=== PATIENT | male | born 1990 | race African-American/Black ===

== ENCOUNTER 2018-11-27 16:46 | Emergency (ER) | payer MEDICAID, SELFPAY ==
[~2018-11-27] VITALS: Ht 170.2 cm; Wt 70.3 kg
[2018-11-27] VITALS (10 sets, daily range): BP systolic 113–120; BP diastolic 61–71
--- NOTE | 2018-11-27 16:41 | NUR ---
ED Nurse Note: Pt BIBA from friend's apartment due to a potential overdose. Pt denies. Pt was seen normal x 2 hours ago according to EMS. Pt denies pain. Pt's friend states that he was seeing cartoons. Pt smells like marijuana. Pt is A + O x1. Ambulatory. Pt decided to take himself off the monitor and go to room 7 and sat there. Needed security assistance to walk pt back to bed. Security at the bedside.
[~2018-11-27 16:46] MED LIST: NKM; NORCO 5-325 TA1 EACH ORAL
--- NOTE | 2018-11-27 16:49 | Emergency Room Report ---
History of Present Illness General Chief Complaint: Altered Level of Consciousness Source: Patient, EMS (Milton Nova MD) Present Illness HPI Patient is a 28-year-old male brought in by EMS after increased altered level consciousness. Patient was noted to have unknown past medical history. History is limited by poor historian. Patient was brought in from a house. Apartment. Patient states he takes trazodone. Patient was noted to have adequate blood sugar by EMS. (Milton Nova MD) Allergies: Coded Allergies: No Known Allergies (Unverified , 12/11/13) Patient History Past Medical History: see triage record Reviewed Nursing Documentation: PMH: Agreed; PSxH: Agreed (Milton Nova MD) Nursing Documentation-PMH Past Medical History: No Stated History (Milton Nova MD) Review of Systems All Other Systems: limited - Review of systems: Review systems is limited by patient's being a poor historian (Milton Nova MD) Physical Exam Vital Signs Date Time Temp Pulse Resp B/P (MAP) Pulse Ox O2 Delivery O2 Flow Rate FiO2 11/27/18 16:33 99.0 92 15 135/62 97 Room Air Sp02 EP Interpretation: reviewed, normal General Appearance: normal inspection, well appearing, no apparent distress, alert, GCS 15 Head: atraumatic ENT: normal ENT inspection, hearing grossly normal, normal voice Neck: normal inspection, full range of motion, supple, no bony tend Respiratory: normal inspection, lungs clear, normal breath sounds, no respiratory distress, no retraction, no wheezing Cardiovascular #1: regular rate, rhythm, no edema Gastrointestinal: normal inspection, normal bowel sounds, non tender, soft, no guarding, no hernia Genitourinary: no CVA tenderness Musculoskeletal: normal inspection, back normal, normal range of motion Neurologic: normal inspection, alert, responsive, speech normal Skin: normal inspection, normal color, no rash (Milton Nova MD) Medical Decision Making Restraint Attestation I, Milton Nova MD, have personally evaluated this patient. Laboratory tests have been reviewed and addressed accordingly. The patient is deemed to present a danger to themselves and/or others. This is based on the exam, history ( provided by patient, EMS/[facility] and/or family) and observed or reported behavior. Attempts for non-invasive measures have been considered and/or attempted, however, have been futile. It is in the best interest of the nursing staff, the patient, and others involved in this patient's care that behavioral restraints be applied. Patient evaluation reveals the following: Markedly agitated patient yelling and screaming. Patient had been aggressive with staff. (Milton Nova MD) Diagnostic Impression: Primary Impression: Altered level of consciousness Additional Impression: Polysubstance abuse ER Course Patient presented for altered mental status. Differential diagnosis included but was not limited to ischemic stroke, subarachnoid hemorrhage, hypoglycemia, spinal cord injury, neurodegenerative disorder, urinary tract infection, hypoxemia. Because of complexity of patient's case laboratory testing and imaging studies were ordered.Patient was noted to have somewhat bizarre behavior. Patient was given IM Haldol as well as Benadryl and Ativan due to agitation. Patient was placed in restraints.Patient was noted to have urine drug screen which was positive for multiple different substances. Patient will be observed until more appropriate.Patient states he lives on his own in an apartment. I anticipate the patient will be discharged after patient substance intoxication resolves. Labs Test 11/27/18 17:00 11/27/18 17:16 White Blood Count 8.4 K/UL (4.8-10.8) Red Blood Count 4.58 M/UL (4.70-6.10) Hemoglobin 12.1 G/DL (14.2-18.0) Hematocrit 36.9 % (42.0-52.0) Mean Corpuscular Volume 81 FL (80-99) Mean Corpuscular Hemoglobin 26.5 PG (27.0-31.0) Mean Corpuscular Hemoglobin Concent 32.8 G/DL (32.0-36.0) Red Cell Distribution Width 12.3 % (11.6-14.8) Platelet Count 205 K/UL (150-450) Mean Platelet Volume 6.5 FL (6.5-10.1) Neutrophils (%) (Auto) 71.1 % (45.0-75.0) Lymphocytes (%) (Auto) 17.8 % (20.0-45.0) Monocytes (%) (Auto) 9.3 % (1.0-10.0) Eosinophils (%) (Auto) 0.8 % (0.0-3.0) Basophils (%) (Auto) 0.9 % (0.0-2.0) Sodium Level 141 MMOL/L (136-145) Potassium Level 4.5 MMOL/L (3.5-5.1) Chloride Level 105 MMOL/L (98-107) Carbon Dioxide Level 27 MMOL/L (21-32) Anion Gap 9 mmol/L (5-15) Blood Urea Nitrogen 17 mg/dL (7-18) Creatinine 1.2 MG/DL (0.55-1.30) Estimat Glomerular Filtration Rate > 60 mL/min (>60) Glucose Level 65 MG/DL (74-106) Calcium Level 9.4 MG/DL (8.5-10.1) Urine Color Brown Urine Appearance Clear Urine pH 5 (4.5-8.0) Urine Specific [place] 1.025 (1.005-1.035) Urine Protein 2+ (NEGATIVE) Urine Glucose (UA) Negative (NEGATIVE) Urine Ketones 2+ (NEGATIVE) Urine Blood Negative (NEGATIVE) Urine Nitrite Negative (NEGATIVE) Urine Bilirubin 1+ (NEGATIVE) Urine Urobilinogen 4 MG/DL (0.0-1.0) Urine Leukocyte Esterase 1+ (NEGATIVE) Urine Opiates Screen Negative (NEGATIVE) Urine Barbiturates Screen Negative (NEGATIVE) Phencyclidine (PCP) Screen Positive (NEGATIVE) Urine Amphetamines Screen Positive (NEGATIVE) Urine Benzodiazepines Screen Negative (NEGATIVE) Urine Cocaine Screen Negative (NEGATIVE) Urine Marijuana (THC) Screen Positive (NEGATIVE) (Milton Nova MD) ER Course Patient was reassessed this morning. Patient awoke. Patient states that he's ready to be discharged. Patient denies any SI/ HI. Patient admits to abusing drugs. I advised patient to stop abusing drugs. Patient states that he wants to be discharged. Patient states that he has a place ago and that he will either walk or take the bus. He is refusing for any transport. Refusing food. States that he's been in the hospital for too long already and wants to leave. Patient did not want to stay in the hospital any longer. I advised if patient will rest a little longer to some food but he declined. Patient demanded the IV be removed and then put his clothes on and walked out of the hospital. Patient appear to be ambulatory without difficulty. He appeared clinically sober. Patient was advised to stay in the hospital for further evaluation and monitoring treatment food. Patient however refused everything. He became upset when I advised that he stay for a longer. Patient understands the risks of leaving including worsening of his condition. Patient appeared capable making decisions as he was alert and orientated 3. Patient refused to sign AMA paperwork. Refused to sign discharge paperwork. Essentially left the hospital AGAINST MEDICAL ADVICE. Labs Test 11/27/18 17:00 11/27/18 17:16 White Blood Count 8.4 K/UL (4.8-10.8) Red Blood Count 4.58 M/UL (4.70-6.10) Hemoglobin 12.1 G/DL (14.2-18.0) Hematocrit 36.9 % (42.0-52.0) Mean Corpuscular Volume 81 FL (80-99) Mean Corpuscular Hemoglobin 26.5 PG (27.0-31.0) Mean Corpuscular Hemoglobin Concent 32.8 G/DL (32.0-36.0) Red Cell Distribution Width 12.3 % (11.6-14.8) Platelet Count 205 K/UL (150-450) Mean Platelet Volume 6.5 FL (6.5-10.1) Neutrophils (%) (Auto) 71.1 % (45.0-75.0) Lymphocytes (%) (Auto) 17.8 % (20.0-45.0) Monocytes (%) (Auto) 9.3 % (1.0-10.0) Eosinophils (%) (Auto) 0.8 % (0.0-3.0) Basophils (%) (Auto) 0.9 % (0.0-2.0) Sodium Level 141 MMOL/L (136-145) Potassium Level 4.5 MMOL/L (3.5-5.1) Chloride Level 105 MMOL/L (98-107) Carbon Dioxide Level 27 MMOL/L (21-32) Anion Gap 9 mmol/L (5-15) Blood Urea Nitrogen 17 mg/dL (7-18) Creatinine 1.2 MG/DL (0.55-1.30) Estimat Glomerular Filtration Rate > 60 mL/min (>60) Glucose Level 65 MG/DL (74-106) Calcium Level 9.4 MG/DL (8.5-10.1) Total Bilirubin 1.0 MG/DL (0.2-1.0) Aspartate Amino Transf (AST/SGOT) 65 U/L (15-37) Alanine Aminotransferase (ALT/SGPT) 29 U/L (12-78) Alkaline Phosphatase 68 U/L (46-116) Total Protein 6.6 G/DL (6.4-8.2) Albumin 4.0 G/DL (3.4-5.0) Globulin 2.6 g/dL Albumin/Globulin Ratio 1.5 (1.0-2.7) Thyroid Stimulating Hormone (TSH) 0.686 uiU/mL (0.358-3.740) Salicylates Level 2.8 ug/mL (2.8-20) Acetaminophen Level < 2 MCG/ML (10-30) Serum Alcohol < 3 mg/dL Urine Color Brown Urine Appearance Clear Urine pH 5 (4.5-8.0) Urine Specific [place] 1.025 (1.005-1.035) Urine Protein 2+ (NEGATIVE) Urine Glucose (UA) Negative (NEGATIVE) Urine Ketones 2+ (NEGATIVE) Urine Blood Negative (NEGATIVE) Urine Nitrite Negative (NEGATIVE) Urine Bilirubin 1+ (NEGATIVE) Urine Ictotest Negative (NEGATIVE) Urine Urobilinogen 4 MG/DL (0.0-1.0) Urine Leukocyte Esterase 1+ (NEGATIVE) Urine RBC 0-2 /HPF (0 - 0) Urine WBC 2-4 /HPF (0 - 0) Urine Squamous Epithelial Cells None /LPF (NONE/OCC) Urine Bacteria Moderate /HPF (NONE) Urine Fine Granular Casts 2-4 /LPF (NONE) Urine Mucus Moderate /LPF (NONE/OCC) Urine Opiates Screen Negative (NEGATIVE) Urine Barbiturates Screen Negative (NEGATIVE) Phencyclidine (PCP) Screen Positive (NEGATIVE) Urine Amphetamines Screen Positive (NEGATIVE) Urine Benzodiazepines Screen Negative (NEGATIVE) Urine Cocaine Screen Negative (NEGATIVE) Urine Marijuana (THC) Screen Positive (NEGATIVE) (Guille Ramos MD) Last Vital Signs Date Time Temp Pulse Resp B/P (MAP) Pulse Ox O2 Delivery O2 Flow Rate FiO2 11/27/18 16:33 99.0 92 15 135/62 97 Room Air Status: improved (Milton Nova MD) Status: improved (Guille Ramos MD) Disposition: AGAINST MEDICAL ADVICE Condition: Stable Milton Nova MD Nov 27, 2018 16:49 Guille Ramos MD Nov 28, 2018 07:32
--- NOTE | 2018-11-27 16:50 | NUR ---
ED Nurse Note: Pt denies wanting to harm himself or others.
--- NOTE | 2018-11-27 16:52 | NUR ---
ED Nurse Note: Notified CT of order.
[2018-11-27] MEDS ORDERED: Haloperidol 5mg/ml Inj IM ONE ×2 (17:00→18:30)
--- NOTE | 2018-11-27 17:23 | NUR ---
ED Nurse Note: Pt taken to CT via [facility].
[2018-11-27 17:33] LABS: ANION GAP 9 mmol/L (5-15); BLOOD UREA NITROGEN 17 mg/dL (7-18); CALCIUM 9.4 MG/DL (8.5-10.1); CARBON DIOXIDE 27 MMOL/L (21-32); CHLORIDE 105 MMOL/L (98-107); CREATININE 1.2 MG/DL (0.55-1.30); POTASSIUM 4.5 MMOL/L (3.5-5.1); SODIUM 141 MMOL/L (136-145)
--- NOTE | 2018-11-27 17:33 | NUR ---
ED Nurse Note: Pt denied CT scan. Notified ERMD.
[2018-11-27 17:35] LABS: BASOPHILS % (AUTO) 0.9 % (0.0-2.0); EOSINOPHILS % (AUTO) 0.8 % (0.0-3.0); HEMATOCRIT 36.9 % (42.0-52.0); HEMOGLOBIN 12.1 G/DL (14.2-18.0); LYMPHOCYTES % (AUTO) 17.8 % (20.0-45.0); MEAN CORPUSCULAR VOLUME 81 FL (80-99); MONOCYTES % (AUTO) 9.3 % (1.0-10.0); NEUTROPHILS % (AUTO) 71.1 % (45.0-75.0); PLATELET COUNT 205 K/UL (150-450); RED BLOOD COUNT 4.58 M/UL (4.70-6.10); RED CELL DISTRIBUTION WIDTH 12.3 % (11.6-14.8); WHITE BLOOD COUNT 8.4 K/UL (4.8-10.8)
[2018-11-27 17:36] LABS: APPEARANCE,URINE CLEAR; BILIRUBIN, URINE 1+ (NEGATIVE); COLOR,URINE BROWN; GLUCOSE, URINE (UA) NEGATIVE (NEGATIVE); KETONES,URINE 2+ (NEGATIVE); LEUKOCYTE ESTERASE ,URINE 1+ (NEGATIVE); NITRITE,URINE NEGATIVE (NEGATIVE); PH,URINE 5 (4.5-8.0); PROTEIN,URINE 2+ (NEGATIVE); UROBILINOGEN,URINE 4 MG/DL (0.0-1.0)
[2018-11-27] MEDS ORDERED: DiphenhydrAMINE 50mg/ml Inj IM ONE (17:45)
[2018-11-27] MEDS ORDERED: LORazepam Inj 2mg/ml 1ml IM ONE (17:45)
[2018-11-27 17:46] LABS: ALANINE AMINOTRANSFERASE 29 U/L (12-78); ALBUMIN/GLOBULIN RATIO 1.5 (1.0-2.7); ALKALINE PHOSPHATASE 68 U/L (46-116); ASPARTATE AMINO TRANSFERASE 65 U/L (15-37)
--- NOTE | 2018-11-27 17:47 | NUR ---
ED Nurse Note: Pt noted to be verbally combative and trying to bite security. Notified ERMD.
--- NOTE | 2018-11-27 17:47 | NUR ---
ED Nurse Note: ERMD gave verbal order for leather restraints.
--- NOTE | 2018-11-27 19:00 | NUR ---
HAND-OFF: Report given to [facility] Thompson.
--- NOTE | 2018-11-27 19:05 | NUR ---
ED Nurse Note: Received report from Gage/[facility]. Pt is A/O X 4. VSS. Will continue to monitor.
--- NOTE | 2018-11-27 20:23 | NUR ---
ED Nurse Note: Pt is resting calm and quietly at this time. VSS. D/C'd restrain.
[2018-11-28 04:00] VITALS: BP 109/63
--- NOTE | 2018-11-28 04:10 | NUR ---
ED Nurse Note: Pt is sleeping quietly at this time. Meds given as ordered. VSS, will continue to monitor.
--- NOTE | 2018-11-28 05:07 | NUR ---
ED Nurse Note: Tried to call Pt's friend, Harmony Borden, , left massage, will try it again later .
[2018-11-28 07:00] VITALS: BP 120/62
--- NOTE | 2018-11-28 07:10 | NUR ---
HAND-OFF: Report given to Norman DILLON/ [facility] for continue care. Pt is A/O X 4. VSS.
[2018-11-28 07:15] VITALS: BP 92/60
[2018-11-28 07:30] VITALS: BP 92/60
--- NOTE | 2018-11-28 07:30 | NUR ---
ED Nurse Note: Pt woke up and requested to remove iv line. Dr Ramos at bedside and he removed IV. no blood or s/s of infection noted. pt was asked to provide address but he refused x3 as stating "I leave alone in the apartment. that's all I will tell you." pt is wearing weather appropriate clothing with thick jacket and shoes. pt was offered food and bus tab but he said "I live around the corner, I will walk." and refused x3. pt refused for nurse to perform full body assessment but assessment was documented based on what nurse inspected upon AMA leaving. pt left AMA as refusing signing on AMA paper as well. id band was removed and pt was told the meaning and risk of AMA. pt stated "Fuck you. Leave me alone." and left with steady gait.
--- NOTE | 2018-11-28 08:00 | NUR ---
Note undone in EDM - 11/28/18 at 0805 by [email or web address] ED Nurse Note: Pt woke up and requested to remove iv line. Dr Ramos at bedside and he removed IV. no blood or s/s of infection noted. pt was asked to provide address but he refused x3 as stating "I leave alone in the apartment. that's all I will tell you." pt is wearing weather appropriate clothing with thick jacket and shoes. pt was offered food and bus tab but he said "I live around the corner, I will walk." and refused x3. pt left AMA as refusing signing on AMA paper as well. id band was removed and pt was told the meaning and risk of AMA. pt stated "Fuck you. Leave me alone." and left with steady gait.
== END 2018-11-28 07:30 | disposition left against medical advice (07) ==
LOC: EDBD 16:46 → EMR 17:00
DX: R41.82 Altered mental status, unspecified (principal); F19.10 Other psychoactive substance abuse, uncomplicated
CPT/HCPCS: 36415; 80053; 80307; 80329; 81003; 84443; 85025; 87086; 96360; 96372; 99284; J1200; J1630

== ENCOUNTER 2020-02-29 23:29 | Emergency (ER) | payer MEDICAID ==
[~2020-02-29] VITALS: Ht 180.3 cm; Wt 72.6 kg
--- NOTE | 2020-02-29 23:30 | NUR ---
ED Nurse Note: brought in by ambulance alicja ra 26 c/o substance abuse and etoh. patient reports etoh and smoking pcp laced with battery acid; unknown amount. reports feeling "weaker than normal". patient ao3. nad. ambulates with steady gait. changed into gown; attached to monitor. vitals stable.
[2020-02-29 23:35] VITALS: BP 134/92
--- NOTE | 2020-02-29 23:35 | Emergency Room Report ---
History of Present Illness General Chief Complaint: Overdose Source: Patient Present Illness HPI Disclaimer: Please note that this report is being documented using DRAGON technology. This can lead to erroneous entry secondary to incorrect interpretation by the dictating instrument. HPI: 29-year-old male presents for evaluation of bizarre behavior and reported overdose. His friends called EMS from a nearby parking lot after the patient smoked PCP approximately 30 minutes ago. He was agitated and combative with EMS but was then redirectable. He was concerned that there may have been "battery acid" and what he smoked but cannot describe exactly why he believe that. He denies any sore throat, mouth byrd, shortness of breath, cough, vomiting. He is requesting something to eat and drink. He denies pain at this time. No injury reported. Denies SI/HI. PMH: Substance abuse PSH: Reviewed Allergies: None reported Social Hx: PCP use Allergies: Coded Allergies: No Known Allergies (Unverified , 12/11/13) COVID-19 Screening Contact w/high risk pt: No Recent Travel to affected area: No Experienced COVID-19 symptoms?: No COVID-19 Testing performed INFANTRY OFFICER: No Nursing Documentation-PMH Past Medical History: No Stated History Review of Systems All Other Systems: negative except mentioned in HPI Physical Exam General: Awake and alert, anxious appearing HEENT: NC/AT. EOMI. pupils are 3 mm and weakly reactive bilaterally. No nystagmus. Moist mucous membranes. No oral or retropharyngeal edema, erythema , ulcerations, signs of byrd. No stridor. Cardiovascular: RRR. S1 and S2 normal. No murmur appreciated Resp: Normal work of breathing. No cough, wheezing or crackles appreciated Abdomen: Abdomen is soft, nondistended. Nontender Skin: Intact. No abrasions, laceration or rash over the exposed skin MSK: Normal tone and bulk. Moving all extremities. No obvious deformity. Neuro: Awake and alert. Slightly tangential thinking and appears anxious but in no distress. Redirectable. Cooperative with staff. Medical Decision Making Diagnostic Impression: Primary Impression: Substance abuse ER Course This a 29-year-old male presenting for evaluation of agitation and bizarre behavior after smoking PCP 30 minutes ago. Patient was concerned he might have been battery acid or other contaminants in the PCP but he has no oral byrd, no respiratory distress and cannot say exactly why he believes there may have been battery acid in it. No obvious burn to the oropharynx. Will monitor in the emergency department, provide fluids, oral hydration and check broad labs. Toxicologic work-up shows positive for PCP and amphetamines. Other labs are within normal limits. The patient is requesting discharge home at this time. He admits to using these substances. He is ambulatory has no other complaints. Will discharge and provide outpatient resources. Laboratory Tests Test 02/29/20 23:35 03/01/20 01:16 White Blood Count 6.0 K/UL (4.8-10.8) Red Blood Count 4.59 M/UL (4.70-6.10) L Hemoglobin 12.4 G/DL (14.2-18.0) L Hematocrit 35.3 % (42.0-52.0) L Mean Corpuscular Volume 77 FL (80-99) L Mean Corpuscular Hemoglobin 27.0 PG (27.0-31.0) Mean Corpuscular Hemoglobin Concent 35.2 G/DL (32.0-36.0) Red Cell Distribution Width 11.3 % (11.6-14.8) L Platelet Count 209 K/UL (150-450) Mean Platelet Volume 6.2 FL (6.5-10.1) L Neutrophils (%) (Auto) 52.6 % (45.0-75.0) Lymphocytes (%) (Auto) 36.3 % (20.0-45.0) Monocytes (%) (Auto) 8.3 % (1.0-10.0) Eosinophils (%) (Auto) 1.7 % (0.0-3.0) Basophils (%) (Auto) 1.1 % (0.0-2.0) Sodium Level 140 MMOL/L (136-145) Potassium Level 4.3 MMOL/L (3.5-5.1) Chloride Level 104 MMOL/L (98-107) Carbon Dioxide Level 27 MMOL/L (21-32) Anion Gap 9 mmol/L (5-15) Blood Urea Nitrogen 12 mg/dL (7-18) Creatinine 1.0 MG/DL (0.55-1.30) Estimated Glomerular Filtration Rate > 60 mL/min (>60) Glucose Level 88 MG/DL (74-106) Calcium Level 8.8 MG/DL (8.5-10.1) Total Bilirubin 0.5 MG/DL (0.2-1.0) Aspartate Amino Transferase (AST) 19 U/L (15-37) Alanine Aminotransferase (ALT) 23 U/L (12-78) Alkaline Phosphatase 68 U/L (46-116) Total Protein 6.6 G/DL (6.4-8.2) Albumin 4.0 G/DL (3.4-5.0) Globulin 2.6 g/dL Albumin/Globulin Ratio 1.5 (1.0-2.7) Salicylates Level 1.9 ug/mL (2.8-20) L Acetaminophen Level < 2 MCG/ML (10-30) L Serum Alcohol < 3 mg/dL Urine Opiates Screen Negative (NEGATIVE) Urine Barbiturates Screen Negative (NEGATIVE) Phencyclidine (PCP) Screen Positive (NEGATIVE) H Urine Amphetamines Screen Positive (NEGATIVE) H Urine Benzodiazepines Screen Negative (NEGATIVE) Urine Cocaine Screen Negative (NEGATIVE) Urine Marijuana (THC) Screen Negative (NEGATIVE) Disposition: HOME, SELF-CARE Condition: Stable Channing Sanchez MD Feb 29, 2020 23:35
--- NOTE | 2020-02-29 23:35 | NUR ---
ED Nurse Note: iv access established. blood collected; sent down to lab. unable to collect urine at this time. patient states he will provide when able; refused straight cath.
[2020-02-29 23:46] LABS: BASOPHILS % (AUTO) 1.1 % (0.0-2.0); EOSINOPHILS % (AUTO) 1.7 % (0.0-3.0); HEMATOCRIT 35.3 % (42.0-52.0); HEMOGLOBIN 12.4 G/DL (14.2-18.0); LYMPHOCYTES % (AUTO) 36.3 % (20.0-45.0); MEAN CORPUSCULAR VOLUME 77 FL (80-99); MONOCYTES % (AUTO) 8.3 % (1.0-10.0); NEUTROPHILS % (AUTO) 52.6 % (45.0-75.0); PLATELET COUNT 209 K/UL (150-450); RED BLOOD COUNT 4.59 M/UL (4.70-6.10); RED CELL DISTRIBUTION WIDTH 11.3 % (11.6-14.8)
[2020-02-29 23:56] LABS: ANION GAP 9 mmol/L (5-15); BLOOD UREA NITROGEN 12 mg/dL (7-18); CALCIUM 8.8 MG/DL (8.5-10.1); CARBON DIOXIDE 27 MMOL/L (21-32); CHLORIDE 104 MMOL/L (98-107); POTASSIUM 4.3 MMOL/L (3.5-5.1); SODIUM 140 MMOL/L (136-145)
[2020-03-01] LABS: ALANINE AMINOTRANSFERASE 23 U/L (12-78); ALBUMIN/GLOBULIN RATIO 1.5 (1.0-2.7); ALKALINE PHOSPHATASE 68 U/L (46-116); ASPARTATE AMINO TRANSFERASE 19 U/L (15-37); BILIRUBIN,TOTAL 0.5 MG/DL (0.2-1.0)
[2020-03-01 00:21] VITALS: BP 122/83
--- NOTE | 2020-03-01 00:30 | NUR ---
Note aleksandr in EDM - 03/01/20 at 0158 by [email or web address] ED Nurse Note: urine collected; sent down to lab.
--- NOTE | 2020-03-01 01:15 | NUR ---
ED Nurse Note: urine collected; sent down to lab.
[2020-03-01 01:59] VITALS: BP 118/79
--- NOTE | 2020-03-01 02:00 | NUR ---
ED Nurse Note: provided patient with nourishment. patient ao4. nad. refusing cyber incident analyst. patient states "i feel better now. i need to call my friend so i can go home."
[2020-03-01 02:14] VITALS: BP 118/79
--- NOTE | 2020-03-01 02:15 | NUR ---
ER DISCHARGE NOTE: Patient is cleared to be discharged per ERMD, pt is aox4, on room air, with stable vital signs. pt was given dc and prescription instructions, pt was able to verbalize understanding, pt id band and iv site removed without complications. pt is able to ambulate with steady gait. pt took all belongings.
== END 2020-03-01 02:15 | disposition home or self-care (01) ==
LOC: EDBD 23:29 → EMR 23:39
DX: F16.10 Hallucinogen abuse, uncomplicated (principal)
CPT/HCPCS: 36415; 80053; 80307; 85025; 96360; G0480; G0481; J7030; Z7502; 99284